=== PATIENT | male | born 1960 | race Caucasian/White ===

== ENCOUNTER 2019-09-05 08:42 | Day surgery (SDC) | payer MEDICAID, SELFPAY ==
[2019-09-02 12:19] VITALS: BMI 28.8
--- NOTE | 2019-09-05 08:53 | ANES.PREANE2 ---
Pre-Anesthetic Assessment Pre-Anesthetic Assessment: Height/Weight: Height 1.85 m Weight 99.337 kg Proposed Procedure: Operation Date: 09/05/19 09:30 Proposed Procedures p Colonoscopy 25147 Z86.10(Not Applicable) - Chuy Flynn MD Was Beta María taken within 24 hours: Yes Social: Social History: Tobacco and No alcohol Exam: Pre-Anes Outpt Exam: alert, oriented x 3, clear to auscultation bilaterally and regular rate & rhythm Airway: Submandibular: WNL Cervical ROM: WNL MP: 2 Dentition: Full History/ROS: No significant history except as noted Pulmonary: Pulmonary: ANNE CV/HEM: CV/HEM: HTN : : None reported Hepatic: Hepatic: Hepatitis (C s/p tx) GI: GI: GERD (occ) Metabolic: Metabolic: Hyperlipidemia Musc/skel: Musc/skel: Lower Back Pain and OA/DJD Neuropsych: Neuropsych: Anxiety and Depression Anesthetic Plan: ASA status: 3 Anesthesia: Anesthesia Evaluation and MAC Risk of > 500 ml blood loss (7ml/kg in children): No PFSH Anesthesia PFSH: Social History (Updated 08/31/19 @ 09:40 by JEYSON Martinez) Smoking and tobacco status: current every day smoker Alcohol intake: never History of recent travel: No Data Anesthesia Cardiac Studies: No Data to Display
--- NOTE | 2019-09-05 09:14 | PM.HPUD ---
H&P update H&P Update: DATE OF SURGERY/PROCEDURE: 09/05/19 DATE H&P PERFORMED: 08/31/19 H&P UPDATE INFORMATION: H&P completed within last 30 days, No changes to prior documentation and H[place] [facility] date indicated PLANNED PROCEDURE: Operation Date: 09/05/19 09:30 Proposed Procedures p Colonoscopy 02320 Z86.10(Not Applicable) - Chuy Flynn MD Full H&P Perinent History: Family History: Family History (Updated 08/25/19 @ 10:53 by Lesia Choudhury LPN) Other Cancer Social History: Social History Smoking and tobacco status: current every day smoker Alcohol intake: never History of recent travel: No
[2019-09-05] MEDS: sodium chloride 0.9% 1,000 ML 30 ML (09:46)
[2019-09-05 09:53] VITALS: BP 130/81; PULSE 80; RESP 18; TEMP 36.6; O2SAT 95
--- NOTE | 2019-09-05 10:19 | SUR.OPER ---
EPI 1MG USED
[2019-09-05 10:34] VITALS: BP 111/68; PULSE 79; RESP 16; TEMP 36.4; O2SAT 96
[2019-09-05 10:44] VITALS: BP 102/55; PULSE 81; RESP 16; O2SAT 96
--- NOTE | 2019-09-05 10:49 | PM.PACU ---
PACU note Post-Anesthesia Exam: awake and vital signs stable Disposition: discharged
--- NOTE | 2019-09-05 11:17 | SUR.PHASEII ---
Discharge: Report called to Josseline Faulkner RN at [facility].
== END 2019-09-05 10:58 | disposition home or self-care (01) ==
PROVIDERS: Family Provider Internal Medicine; PCP Internal Medicine; Visit Provider Internal Medicine
PROC: 0DJD8ZZ Inspection of Lower Intestinal Tract, Via Natural or Artificial Opening Endoscopic (ICD-10-PCS; CPT 45378; principal; 2019-09-05 09:30)
DX: Z12.11 Encounter for screening for malignant neoplasm of colon (principal); Z86.010 Personal history of colon polyps; D12.2 Benign neoplasm of ascending colon; D12.4 Benign neoplasm of descending colon; Z79.82 Long term (current) use of aspirin; F17.210 Nicotine dependence, cigarettes, uncomplicated; I10 Essential (primary) hypertension; K21.9 Gastro-esophageal reflux disease without esophagitis; E78.5 Hyperlipidemia, unspecified
CPT/HCPCS: 12345; 45385; 88305; J0171; J2704; J7030

== ENCOUNTER 2020-09-10 09:38 | Outpatient (CLI) | payer MEDICAID, SELFPAY ==
--- NOTE | 2020-09-10 09:46 | FL_ITS ---
WS: [id number] ESOPHAGRAM WITH FLUOROSCOPY HISTORY: MALIGNANT NEOPLASM OF GLOTTIS, DYSPHAGIA, CHRONIC LARYNGITIS COMPARISON: None available. FLUOROSCOPY TIME: 0.8 minutes. Esophagus and swallowing function: Patient swallowed the barium mixture without difficulty. No strict ures or mucosal abnormalities are identified. Laryngeal penetration with no aspiration was identified during the examination. There is no stricture or significant mucosal abnormalities. Vocal cords move symmetrically. Cervical osteophytes encroach upon the posterior cervical esophagus. There is very sl ight encroachment posteriorly at C6. Gastroesophageal reflux: None. Hiatal hernia: No hiatal hernia. FL/FL barium swallow [id number] IMPRESSION: 1. No significant esophageal stricture. No mucosal neoplasm. 2. Osteophyte encroachment into the posterior esophagus is minimal at C6.
--- NOTE | 2020-09-10 09:46 | CT_ITS ---
WS: [id number] CT NECK WITH CONTRAST HISTORY: MALIGNANT NEOPLASM OF GLOTTIS, DYSPHAGIA, CHRONIC LARYNGITIS TECHNIQUE: Contiguous 5 mm axial images are performed through the neck with intravenous contrast. Sag ittal and coronal reformats are also submitted. All CT scans at [facility] use at least o ne of these dose optimization techniques: automated exposure control; mA and/or kV adjustment per pat ient size (includes targeted exams where dose is matched to clinical indication); or iterative recons truction. CONTRAST: CONTRAST: Omnipaque 300; 95 mL IV. DLP: 3014.67 mGycm COMPARISON: 05/26/2019 Nasopharynx, oropharynx, hypopharynx and larynx are unremarkable. No soft tissue masses or abnormal e nhancement. There is a very minimal area wall thickening on the LEFT and the subglottic airway. Previ ously described prominent soft tissue on the RIGHT is no longer present. Torus tubarius and fossa of Rosenmuller and parapharyngeal fat are normal. No significant lymphadenopathy is identified. Thyroid gland and salivary glands are normally enhancing with no masses. No osseous abnormalities. Visualized portions of the skull base demonstrate no abnormalities. Orbits and globes are within norm al limits. No soft tissue masses. Small amount of mucoperiosteal thickening in the maxillary sinuses. RIGHT apical pleural thickening and scarring. Low-attenuation nodules within the superior anterior me diastinum were negative on PET/CT. These cystic nodules are well-circumscribed but increased in size since 2018. The largest anteriorly measures 3.[address]/CT neck w con* [id number] IMPRESSION: 1. No evidence for recurrent colonic neoplasm or adenopathy. 2. Very tiny amount of soft tissue thickening in the LEFT subglottic airway. M ay be mucous retention. Very early subglottic neoplasm not excluded. 3. Stable well-circumscribed PET/CT negative cystic nodules in the anterior powers perior mediastinum.
[2020-09-10 10:49] LABS: Blood Urea Nitrogen 12 mg/dL (8-23); Glomerular Filtration Rate 75.7 mL/min (90-130)
[2020-09-10] MEDS: iohexol 300 mg/mL 100 mL Btl IV (11:04)
== END 2020-09-10 09:39 | disposition home or self-care (01) ==
PROVIDERS: Specialist; PCP Internal Medicine; Visit Provider Otolaryngology
DX: J37.0 Chronic laryngitis; C32.0 Malignant neoplasm of glottis; R13.10 Dysphagia, unspecified; M25.78 Osteophyte, vertebrae
CPT/HCPCS: 70491; 74220; 82565; 84520; Q9967

== ENCOUNTER 2020-10-08 07:36 | Day surgery (SDC) | payer MEDICAID, SELFPAY ==
[2020-10-04 13:34] VITALS: BMI 27.4
[2020-10-08 08:07] VITALS: BP 112/78; PULSE 86; RESP 18; TEMP 36.9; O2SAT 94
[2020-10-08] MEDS: sodium chloride 0.9% 1,000 ML 30 ML IV (08:39)
--- NOTE | 2020-10-08 09:07 | P.HP_ITS ---
Same Day Surgery H&P Indication for Procedure/HPI DATE OF PROCEDURE: October 08, 2020 CHIEF COMPLAINT/INDICATIONFOR SURGICAL PROCEDURE: History of colon polyps PREOP DIAGNOSIS: hello? PLANNED PROCEDRUE: Operation Date: 10/08/20 09:00 Proposed Procedures p Colonoscopy 02291 Z86.010(Not Applicable) - Chuy Flynn MD Medications/Allergies* Home Medications Medication Instructions Recorded Confirmed Type aspirin 81 mg tablet,delayed 81 mg PO DAILY 08/25/19 10/08/20 History release atorvastatin 40 mg tablet 40 mg PO DAILY 08/25/19 10/04/20 History multivitamin 1 tab PO DAILY 08/25/19 10/04/20 History acetaminophen 325 mg capsule 650 mg PO QID PRN cap 08/31/19 10/04/20 History alprazolam 1 mg tablet 1 mg PO TID PRN 08/31/19 10/04/20 History aluminum-mag hydroxide-simethicone 10 ml PO Q6H PRN 08/31/19 10/04/20 History 200 mg-200 mg-20 mg/5 mL oral susp bisacodyl 10 mg rectal suppository 10 mg MA DAILY PRN 08/31/19 10/04/20 History cetirizine 10 mg capsule 10 mg PO DAILY 08/31/19 10/04/20 History cholecalciferol (vitamin D3) 1,250 50,000 unit PO DAILY 08/31/19 10/04/20 History mcg (50,000 unit) oral wafer codeine 10 mg-guaifenesin 100 mg/5 5 ml PO Q6H PRN 08/31/19 10/04/20 History mL oral liquid docusate sodium 100 mg capsule 100 mg PO DAILY 08/31/19 10/04/20 History fluticasone propionate 50 2 spray INTRANASAL DAILY 08/31/19 10/04/20 History mcg/actuation nasal spray,suspension gabapentin 100 mg capsule 100 mg PO TID 08/31/19 10/04/20 History isosorbide mononitrate 30 mg 30 mg PO DAILY 08/31/19 10/04/20 History tablet,extended release 24 hr lisinopril 10 mg tablet 10 mg PO DAILY 08/31/19 10/04/20 History magnesium hydroxide 400 mg/5 mL 5 ml PO DAILY PRN 08/31/19 10/08/20 History oral suspension metoprolol tartrate 50 mg tablet 50 mg PO BID 08/31/19 10/04/20 History morphine 15 mg immediate release 15 mg PO BID PRN 08/31/19 10/04/20 History tablet morphine 60 mg capsule,extended 60 mg PO Q12H cap 08/31/19 10/08/20 History release 24 hr multiphase naproxen 500 mg tablet 500 mg PO BID 08/31/19 10/04/20 History oxycodone 10 mg tablet 10 mg PO QID PRN 08/31/19 10/04/20 History pantoprazole 40 mg tablet,delayed 40 mg PO DAILY 08/31/19 10/04/20 History release risperidone 1 mg tablet 1 mg PO DAILY 08/31/19 10/04/20 History tizanidine 4 mg capsule 4 mg PO BID PRN 08/31/19 10/04/20 History budesonide 0.25 mg INHALATION BID 09/05/19 10/04/20 History famotidine 20 mg PO DAILY 09/05/19 10/04/20 History melatonin 6 mg PO DAILY 09/05/19 10/04/20 History sennosides-docusate sodium 2 tab-cap PO DAILY 09/05/19 10/04/20 History [Senexon-S] Allergies/Adverse Reactions Allergy/AdvReac Type Severity Reaction Status Date / Time No Known Allergies Allergy Verified 10/04/20 13:33 Current Medications: Generic Name Dose Route Start Last Admin Trade Name Freq PRN Reason Stop Dose Admin Sodium Chloride 1,000 mls @ 30 mls/hr 10/08/20 08:45 10/08/20 08:39 Sodium Chloride 0.9% IV 10/09/20 08:44 30 mls/hr .Q24H SATISH Administration Pertinent History/Comorbid Conditions* Family History (Updated 08/25/19 @ 10:53 by Lesia Choudhury LPN) Cancer Social History Smoking and tobacco status: current every day smoker Alcohol intake: never History of recent travel: No Pertinent Exam Findings alert, oriented x 3, clear to auscultation bilaterally, regular rate & rhythm, operative site marked and procedure specific exam findings Recommendations Surgery/Procedure today Coding Level of Care Code 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
--- NOTE | 2020-10-08 10:15 | ANES.PREANE2 ---
Pre-Anesthetic Assessment Pre-Anesthetic Assessment: Height/Weight: Height 1.85 m Weight 94.347 kg Temp Pulse Resp BP Pulse Ox 97.0 F L 84 18 108/80 92 10/08/20 10:33 10/08/20 10:33 10/08/20 10:33 10/08/20 10:33 10/08/20 10:33 Preop Diagnosis: history of polyps Proposed Procedure: Operation Date: 10/08/20 09:00 Proposed Procedures p Colonoscopy 68025 Z86.010(Not Applicable) - Chuy Flynn MD Was Beta María taken within 24 hours: N/A Was Clonidine taken within 24 hours: N/A Last intake: Intake Last Liquid Date 10/08/20 Last Liquid Time 05:30 Last Solid Date 10/07/20 Last Solid Time 12:00 Social: Social History: Tobacco Exam: Pre-Anes Outpt Exam: alert, oriented x 3, clear to auscultation bilaterally and regular rate & rhythm Airway: Submandibular: WNL Cervical ROM: WNL MP: 2 History/ROS: No significant history except as noted Pulmonary: Pulmonary: ANNE CV/HEM: CV/HEM: HTN : : None reported Hepatic: Hepatic: Hepatitis (C (treated)) GI: GI: None reported Metabolic: Metabolic: Hyperlipidemia Musc/skel: Musc/skel: Lower Back Pain Neuropsych: Neuropsych: Anxiety and Depression Anesthetic Plan: ASA status: 3 Anesthesia: Anesthesia Evaluation and MAC Risk of > 500 ml blood loss (7ml/kg in children): No Meds/Allergies Current Medications: Current Medications Generic Name Dose Route Start Last Admin Trade Name Freq PRN Reason Stop Dose Admin Sodium Chloride 1,000 mls @ 30 ml s/hr 10/08/20 08:45 10/08/20 08:39 Sodium Chloride 0.9% IV 10/09/20 08:44 30 mls/hr .Q24H SATISH Administration PFSH Anesthesia PFSH: Family History Other Cancer Social History (Updated 08/31/19 @ 09:40 by JEYSON Martinez) Smoking and tobacco status: current every day smoker Alcohol intake: never History of recent travel: No Data Anesthesia Cardiac Studies: No Data to Display
[2020-10-08 10:33] VITALS: BP 108/80; PULSE 84; RESP 18; TEMP 36.1; O2SAT 92
[2020-10-08 10:49] VITALS: BP 143/88; PULSE 80; RESP 18; O2SAT 93
--- NOTE | 2020-10-08 18:56 | ANE.PACU2 ---
Inpatient post-anesthesia follow up: Airway intact: Yes Vital signs: Temperature 97.0 F Pulse Rate 80 Respiratory Rate 18 Blood Pressure 143/88 Pulse Oximetry 93 Oxygen Delivery Me thod Room Air Oxygen Flow Rate 2 Fraction of Inspir ed Oxygen Hydration adequate: Yes Nausea and vomiting: No Pain level: 1 Mental status: Baseline
== END 2020-10-08 10:55 | disposition home or self-care (01) ==
PROVIDERS: PCP Internal Medicine; Visit Provider Internal Medicine
PROC: 0DJD8ZZ Inspection of Lower Intestinal Tract, Via Natural or Artificial Opening Endoscopic (ICD-10-PCS; CPT 45378; principal; 2020-10-08 09:00)
DX: Z86.010 Personal history of colon polyps (principal); D12.3 Benign neoplasm of transverse colon; K63.89 Other specified diseases of intestine; I10 Essential (primary) hypertension; B19.20 Unspecified viral hepatitis C without hepatic coma; E78.5 Hyperlipidemia, unspecified; F17.210 Nicotine dependence, cigarettes, uncomplicated
CPT/HCPCS: 45385; 96360; 96361; J2704; J7030